=== PATIENT | female | born 1980 | race African-American/Black ===

== ENCOUNTER 2020-05-18 16:32 | Emergency (ER) | payer OTHER ==
[~2020-05-18] VITALS: Ht 172.7 cm; Wt 73.0 kg
[2020-05-18 19:57] LABS: BASOPHILS % 1.1 % (0.0-2.0); EOSINOPHILS % 8.7 % (0.0-5.0); HEMATOCRIT. 42.8 % (36.0-48.0); HEMOGLOBIN. 14.3 g/dL (12.0-16.0); LYMPHOCYTES % 53.6 % (20.0-50.0); MEAN CORPUSCULAR HEMOGLOBIN 30.3 pg (28.0-32.0); MEAN CORPUSCULAR VOLUME 90.7 fL (81.0-99.0); MEAN PLATELET VOLUME 10.4 fl (7.4-10.4); MONOCYTES % 7.3 % (2.0-8.0); NEUTROPHILS % 29.3 % (40.0-76.0); PLATELET 168 x1000/uL (130-400); RED BLOOD CELL COUNT 4.72 mill/uL (4.2-5.4); RED CELL DISTRIBUTION WIDTH 13.2 % (11.6-14.6)
[2020-05-18 20:08] LABS: CHLORIDE 107 mEq/L (98-107)
[2020-05-18 20:19] LABS: B-HCG QUANTITATIVE < 1 mIU/mL (<3)
[2020-05-18] MEDS ORDERED: KETOROLAC 15MG/ML VIAL IV ONE (20:30)
[2020-05-18] MEDS ORDERED: ACETAMINOPHEN 325MG TABLET PO ONE (22:45)
[2020-05-19] MEDS ORDERED: IOHEXOL-300 100 ML BOTTLE ONE (01:30)
[2020-05-19 01:36] VITALS: BP 114/64
== END 2020-05-19 02:00 | disposition home or self-care (01) ==
LOC: ER 16:32
DX: R10.30 Lower abdominal pain, unspecified (principal); J45.909 Unspecified asthma, uncomplicated; Z86.73 Personal history of transient ischemic attack (TIA), and cerebral infarction without residual deficits
CPT/HCPCS: 36415; 74177; 76830; 76856; 80053; 84702; 85025; 86850; 86900; 86901; 93005; 96374; 99285; J1885; Q9967

== ENCOUNTER 2021-03-17 22:07 | Emergency (ER) | payer MEDICAID, OTHER ==
[~2021-03-17] VITALS: Ht 172.7 cm; Wt 63.0 kg
[2021-03-18 00:43] LABS: BASOPHILS % 1.2 % (0.0-2.0); EOSINOPHILS % 9.5 % (0.0-5.0); HEMATOCRIT. 44.6 % (36.0-48.0); HEMOGLOBIN. 15.2 g/dL (12.0-16.0); MEAN PLATELET VOLUME 9.8 fl (7.4-10.4); MONOCYTES % 8.2 % (2.0-8.0); NEUTROPHILS % 41.1 % (40.0-76.0); PLATELET 208 x1000/uL (130-400); RED CELL DISTRIBUTION WIDTH 13.3 % (11.6-14.6)
[2021-03-18 00:50] LABS: CHLORIDE 108 mEq/L (98-107)
[2021-03-18 00:57] LABS: ETHANOL BLOOD < 10 mg/dL
[2021-03-18 01:03] LABS: HCG SCREEN NEGATIVE
[2021-03-18 01:15] LABS: INR 1.1; PROTHROMBIN TIME 11.9 sec (9.6-11.0)
[2021-03-18] MEDS ORDERED: LORAZEPAM 1MG TABLET PO ONE (08:00)
[2021-03-18] MEDS ORDERED: DIAZEPAM 2 MG TABLET PO ONE (09:00)
[2021-03-18] MEDS ORDERED: LORAZEPAM 2MG/ML CPJ IM STA (12:08)
[2021-03-18] MEDS ORDERED: OLANZAPINE 10 MG/VIAL IM ONE (12:15)
[2021-03-18 16:32] LABS: CLARITY URINE CLEAR (CLEAR); COLOR URINE YELLOW (YELLOW); KETONES URINE TRACE (NEGATIVE); LEUKOCYTE ESTERASE URINE TRACE (NEGATIVE); NITRITE URINE NEGATIVE (NEGATIVE); OCCULT BLOOD URINE NEGATIVE (NEGATIVE); PH URINE 5.5 (4.5-8.0); PROTEIN URINE NEGATIVE (NEGATIVE); SPECIFIC GRAVITY URINE 1.019 (1.005-1.030)
[2021-03-18 16:51] LABS: *BARBITURATES SCREEN URINE NEGATIVE (NEGATIVE); *BENZODIAZEPINES SCREEN URINE NEGATIVE (NEGATIVE); *COCAINE SCREEN URINE NEGATIVE (NEGATIVE); METHADONE URINE SCREEN NEGATIVE (NEGATIVE); OPIATES URINE SCREEN NEGATIVE (NEGATIVE); PHENCYCLIDINE URINE SCREEN NEGATIVE (NEGATIVE)
[2021-03-18 17:05] LABS: *AMPHETAMINES SCREEN URINE PRESUMTIVE POSITIVE (NEGATIVE); CANNABINOID URINE SCREEN PRESUMTIVE POSITIVE (NEGATIVE)
[2021-03-18] MEDS ORDERED: LORAZEPAM 1MG TABLET PO NR (20:00)
[2021-03-18] MEDS: OLANZAPINE 10 MG/VIAL IM NR ×2 (20:05→20:07)
[2021-03-19] MEDS ORDERED: DIAZEPAM 5 MG TABLET PO ONE (08:15)
[2021-03-19] MEDS ORDERED: ACETAMINOPHEN 325MG TABLET PO ONE (08:15)
[2021-03-19] MEDS ORDERED: ONDANSETRON 4MG ODT PO ONE (15:30)
[2021-03-20] MEDS: ACETAMINOPHEN 325MG TABLET PO ONE ×2 (00:38→00:45)
[2021-03-20] MEDS: MAGNESIUM/ALUMINUM HYDROXIDE/SIMETHICONE 30ML UDC PO ONE ×2 (00:38→00:44)
[2021-03-20] MEDS: OLANZAPINE 10MG TABLET PO SCH (08:27)
[2021-03-21] MEDS: OLANZAPINE 10MG TABLET PO SCH (09:31)
[2021-03-21] MEDS ORDERED: ACETAMINOPHEN 650MG/20.3ML UDC PO STA (22:27)
[2021-03-22] MEDS ORDERED: ACETAMINOPHEN 325MG TABLET PO ONE (14:45)
[2021-03-22 20:09] VITALS: BP 105/64
== END 2021-03-22 20:07 ==
LOC: ER 22:36
DX: F23 Brief psychotic disorder (principal); F15.10 Other stimulant abuse, uncomplicated; N93.9 Abnormal uterine and vaginal bleeding, unspecified; F32.9 Major depressive disorder, single episode, unspecified; R26.9 Unspecified abnormalities of gait and mobility; R45.1 Restlessness and agitation; F16.10 Hallucinogen abuse, uncomplicated; Z75.1 Person awaiting admission to adequate facility elsewhere; Z59.0 Homelessness; Z20.822 Contact with and (suspected) exposure to COVID-19
CPT/HCPCS: 70450; 76856; 81025; 99285; C9803; Q0162; U0003; U0005